=== PATIENT | female | born 1945 | race Caucasian/White ===

== ENCOUNTER 2017-01-09 08:15 | Emergency (ER) | payer OTHER ==
[~2017-01-09] VITALS: Ht 165.1 cm; Wt 98.2 kg
[2017-01-09 08:28] VITALS: Ht 165.1 cm; Wt 98.2 kg
[2017-01-09] MEDS ORDERED: morphine 4 MG/ML VIAL IV STA (08:44)
[2017-01-09] MEDS ORDERED: ONDANSETRON 4 MG INJ IV STA (08:44)
--- NOTE | 2017-01-09 09:31 | ERA ---
ER Documentation Chief Complaint Date/Time DATE: 01/09/17 TIME: 09:27 Chief Complaint NON-TRAUMATIC RT ARM PAIN RADIATING TO SHOULDER. HPI This is a 71-year-old female who presents with right arm pain. Her daughter is interpreting. The patient describes approximately 2-3 days of right arm pain. She describes the pain as a radiating from the anterior glenohumeral or joint to the forearm and posterior shoulder. She denies any chest pain or mid back pain. She denies any sudden onset of pain. The patient's pain is gradual in onset and worse over the past several days. She describes the pain is slightly worse with movement. She denies any recent trauma, fevers or chills. No exertional symptoms. ROS All systems reviewed and are negative except as per history of present illness. Medications Home Meds Active Scripts Docusate Sodium* (Colace*) 100 Mg Capsule, 100 MG PO TID Y for CONSTIPATION, # 30 CAP Prov:LIZZY TUCKER MD 01/09/17 Tramadol HCl (Tramadol HCl) 50 Mg Tablet, 50 MG PO Q6 Y for PAIN, #15 TAB Prov:LIZZY TUCKER MD 01/09/17 PMhx/Soc History of Surgery: Yes (Bilateral cataract, Hysterectomy) Anesthesia Reaction: No Hx Neurological Disorder: No Hx Respiratory Disorders: No Hx Cardiac Disorders: No (HTN) Hx Psychiatric Problems: Yes (Depression) Hx Miscellaneous Medical Probl: No Hx Alcohol Use: No Hx Substance Use: No Hx Tobacco Use: No Smoking Status: Never smoker FmHx Family History: No diabetes Physical Exam Vitals Vital Signs Date Time Temp Pulse Resp B/P Pulse Ox O2 Delivery O2 Flow Rate FiO2 01/09/17 08:50 0 01/09/17 08:28 98.2 66 16 196/97 98 Physical Exam General: Well developed, well nourished, no acute distress Head: Normocephalic, atraumatic. Eyes: Pupils equally reactive, EOM intact ENT: Moist mucous membranes Neck: Supple, no lymphadenopathy Respiratory: Lungs clear bilaterally, no distress Cardiovascular: RRR, no murmurs, rubs, or gallops Abdominal: Soft, non-tender, non-distended, no peritoneal signs : Deferred MSK: The patient seems to have focal tenderness along the anterior portion of the glenohumeral joint with a positive supraspinatus test. Soft compartments of the upper extremity, 2+ radial and ulnar pulses, no pulse deficits Neurologic: Alert and oriented, moving all extremities, normal speech, no focal weakness, no cerebellar signs Skin: No rash Psych: Normal mood Result Diagram: 01/09/17 0856 01/09/17 0856 Results 24 hrs Laboratory Tests Test 01/09/17 08:56 White Blood Count 7.210^3/ul Red Blood Count 4.3510^6/ul Hemoglobin 13.6g/dl Hematocrit 39.4% Mean Corpuscular Volume 90.6fl Mean Corpuscular Hemoglobin 31.3pg Mean Corpuscular Hemoglobin Concent 34.5g/dl Red Cell Distribution Width 13.8% Platelet Count 45838^3/UL Mean Platelet Volume 11.0fl Neutrophils % 67.0% Lymphocytes % 24.4% Monocytes % 6.6% Eosinophils % 1.0% Basophils % 0.6% Nucleated Red Blood Cells % 0.0/100WBC Neutrophils # (Manual) 4.810^3/ul Lymphocytes # 1.810^3/ul Monocytes # 0.510^3/ul Eosinophils # 0.110^3/ul Basophils # 0.010^3/ul Nucleated Red Blood Cells # 0.010^3/ul Sodium Level 140mmol/L Potassium Level 3.6mmol/L Chloride Level 104mmol/L Carbon Dioxide Level 26mmol/L Anion Gap 14 Blood Urea Nitrogen 11mg/dl Creatinine 0.64mg/dl Glucose Level 96mg/dl Calcium Level 9.2mg/dl Troponin I < 0.012ng/ml Current Medications Medications (Trade) Dose Ordered Sig/Nicole Route PRN Reason Start Time Stop Time Status Last Admin Dose Admin Morphine Sulfate (morphine) 4 mg ONCE STAT IV 01/09/17 08:44 01/09/17 08:46 DC 01/09/17 08:44 Ondansetron HCl (Zofran Inj) 4 mg ONCE STAT IV 01/09/17 08:44 01/09/17 08:46 DC 01/09/17 08:44 Procedures/MDM EKG, MONITORS, & DIAGNOSTIC IMAGING: EKG: I reviewed and interpreted a 12-lead EKG. Rhythm: Normal sinus rhythm Ectopy: None Intervals: No abnormalities ST segments: No elevations or depressions T waves: No contiguous inversions Chest x-ray: I reviewed and interpreted a 2 view of the chest Mediastinum: No enlargement Cardiac silhouette: No cardiomegaly Airspace: Clear lung singh bilaterally without evidence of pneumothorax Bones: No evidence of fracture X-ray right shoulder I reviewed and interpreted multiple views of the x-ray Bones: No evidence of acute fracture dislocation or subluxation Soft tissue: No evidence of foreign body LAB INTERPRETATION: Negative troponin MEDICAL DECISION MAKING: The patient presents to the emergency room with right shoulder pain. She does have elevated blood pressure. The patient states that she did not take her blood pressure medication today. The patient does have shoulder pain with slight posterior shoulder pain. However, she does not have midline back pain, no ripping or tearing or sudden onset of symptoms, no pulse deficits, no migratory pain to suggest dissection. I do not believe the patient is having a dissection and do not feel the patient requires CTA of the chest. The patient's symptoms additionally do not suggest a cardiac etiology. The patient has very reproducible symptoms on her right shoulder with a positive supraspinatus test. I believe given her clinical exam this is more likely secondary to rotator cuff tendinitis versus rotator cuff injury. No signs or symptoms concerning for septic arthritis, no erythema warmth or tenderness, full active and passive range of motion of the joint. ER COURSE The patient's pain and symptoms are improved. The patient's laboratory testing and diagnostic imaging is negative. Normal mediastinum on chest x-ray. At this time and feel the patient can be safely discharged home with range of motion exercises, referral to primary care physician for PT and OT, outpatient referral to orthopedic surgeon from primary care physician would be reasonable and outpatient MRI imaging would be reasonable. Return precautions were discussed with the family and stated understanding. The patient took her daily medication and her blood pressure has improved. I kept the patient and/or family informed of laboratory and diagnostic imaging results throughout the emergency room course. DISPOSITION PLAN: We discussed follow up with the patient's primary care doctor within 24 to 48 hours as needed. We also discussed return to the emergency room for worsening symptoms or worsening condition. Outpatient referral: Primary care and orthopedic surgery Discharge Medications: Tramadol, Colace Departure Diagnosis: Primary Impression: Hypertensive urgency Additional Impression: Tendinitis of right rotator cuff Condition: Stable LIZZY TUCKER MD Jan 09, 2017 09:31
[2017-01-09 09:39] LABS: BASOPHILS % 0.6 % (0.0-2.0); EOSINOPHILS # 0.1 10^3/ul (0.0-0.5); HEMATOCRIT 39.4 % (37.0-47.0); HEMOGLOBIN 13.6 g/dl (12.0-16.0); LYMPHOCYTES # 1.8 10^3/ul (0.8-2.9); LYMPHOCYTES % 24.4 % (15.0-51.0); MEAN CORPUSCULAR HEMOGLOBIN 31.3 pg (29.0-33.0); MEAN CORPUSCULAR HGB CONC 34.5 g/dl (32.0-37.0); MEAN CORPUSCULAR VOLUME 90.6 fl (82.0-101.0); MONOCYTE # 0.5 10^3/ul (0.3-0.9); MONOCYTES % 6.6 % (0.0-11.0); PLATELET COUNT 294 10^3/UL (140-415); RED BLOOD COUNT 4.35 10^6/ul (4.20-5.40); RED CELL DISTRIBUTION WIDTH 13.8 % (11.5-14.5); WHITE BLOOD COUNT 7.2 10^3/ul (4.8-10.8)
--- NOTE | 2017-01-09 09:45 | RADRPT ---
PROCEDURE: XR Shoulder. CLINICAL INDICATION: Right shoulder pain TECHNIQUE: Three views of the right shoulder are available for review. COMPARISON: None available FINDINGS: The humeral head is located. Mild AC joint arthrosis. There is no acute osseous or articular abnorma lity. No evidence for fracture. The visualized portions of the right lung are clear . IMPRESSION: 1. No acute osseous abnormality. 2. Mild AC joint arthrosis. RPTAT: QQ .Mayo Pyle MD, MD Date Time Electronically viewed and signed by .Mayo Pyle MD, on 01/09/2017 09:45 .d/
--- NOTE | 2017-01-09 09:46 | RADRPT ---
PROCEDURE: XR Chest. CLINICAL INDICATION: Dyspnea TECHNIQUE: Single frontal chest x-ray. COMPARISON: None available FINDINGS: The lungs volumes are diminished. There are compressive changes with vascular crowding and basilar atelectasis. No acute infiltrate is seen. The cardiomediastinal silhouette is normal. The base of the heart is elevated due to low lung volumes. Aortic atherosclerotic vascular calcifications are identified. The surrounding soft tissues and osseous structures are remarkable for minimal subtle d egenerative enthesopathy of the spine. IMPRESSION: 1. Low lung volumes with compressive changes and basilar atelectasis. 2. Otherwise, unremarkable chest x-ray. No acute infiltrate is seen. 3. Scattered benign chronic senescent changes. RPTAT: HMJB .Ignacio Sanchez MD, MD Date Time Electronically viewed and signed by .Ignacio Sanchez MD, on 01/09/2017 09:45 .B/
[2017-01-09 09:57] LABS: ANION GAP 14 (8-16); BLOOD UREA NITROGEN 11 mg/dl (7-20); CALCIUM 9.2 mg/dl (8.4-10.2); CARBON DIOXIDE 26 mmol/L (21-31); CHLORIDE 104 mmol/L (97-110); CREATININE 0.64 mg/dl (0.44-1.00); GLUCOSE 96 mg/dl (70-220); POTASSIUM 3.6 mmol/L (3.5-5.1); SODIUM 140 mmol/L (135-144)
[2017-01-09 10:12] LABS: TROPONIN-I < 0.012 ng/ml (0.00-0.12)
[2017-01-09] MEDS ORDERED: DOCU-144 PO (10:32)
[2017-01-09] MEDS ORDERED: TRAM50TA2 PO (10:32)
[2017-01-09 10:35] VITALS: BP 161/76; PULSE 53; RESP 18
== END 2017-01-09 10:44 | disposition home or self-care (01) ==
LOC: E/R 08:15
DX: I16.0 Hypertensive urgency (principal); M75.81 Other shoulder lesions, right shoulder; I10 Essential (primary) hypertension
CPT/HCPCS: 36415; 71020; 73030; 80048; 84484; 85025; 93005; 96374; 96375; 99285; J2270; J2405

== ENCOUNTER 2018-04-26 22:07 | Emergency (ER) | END 2018-04-27 01:03 | disposition home or self-care (01) ==

== ENCOUNTER 2018-06-07 11:10 | Emergency (ER) | payer OTHER ==
[~2018-06-07] VITALS: Ht 157.5 cm; Wt 88.9 kg
[~2018-06-07 11:10] MED LIST: DOCU-144 PO; IBUP-1561 PO; TRAM50TA2 PO
[2018-06-07 11:15] VITALS: Ht 157.5 cm; Wt 88.9 kg
--- NOTE | 2018-06-07 12:06 | ERD ---
ER Documentation Chief Complaint Chief Complaint c/o right arm radiating to back. den injury. Noted with hypertension HPI 72-year-old female history of hypertension, hyperlipidemia, depression and osteoarthritis presents to the ED complaining of right upper back back pain which began upon awakening 3 days ago. Pain is moderate, sharp, nonradiating and exacerbated by movement. No history of trauma or injury. Denies weakness, numbness or paresthesias. Denies chest pain, palpitations, shortness of breath, leg pain, swelling or hemoptysis. No URI symptoms, cough or sputum production. No fevers or chills. ROS All systems reviewed and are negative except as per history of present illness. Medications Home Meds Active Scripts Tramadol HCl (Tramadol HCl) 50 Mg Tablet, 50 MG PO Q8 PRN for PAIN, #12 TAB Prov:DEBO CRAIG MD 06/07/18 Reported Medications Sertraline Hcl* (Sertraline Hcl*) 50 Mg Tablet, 50 MG PO DAILY, #30 TAB 06/07/18 Atorvastatin* (Atorvastatin*) 40 Mg Tablet, 40 MG PO QHS, #30 TAB 06/07/18 Vitamin B Complex* (Vitamin B Complex*) 1 Each Tablet, 1 TAB PO DAILY, TAB 06/07/18 Carvedilol* (Carvedilol*) 3.125 Mg Tablet, 3.125 MG PO BID, #60 TAB 06/07/18 Losartan Potassium* (Losartan Potassium*) 100 Mg Tablet, 100 MG PO DAILY, TAB 06/07/18 Alendronate Sodium* (Fosamax*) 70 Mg Tablet, 70 MG PO Q7D, #4 TAB 06/07/18 Discontinued Scripts Ibuprofen* (Motrin*) 400 Mg Tab, 400 MG PO Q6, #30 TAB Prov:TYRELL ISLAS PA-C 04/27/18 Docusate Sodium* (Colace*) 100 Mg Capsule, 100 MG PO TID PRN for CONSTIPATION, #30 CAP Prov:LIZZY TUCKER MD 01/09/17 Tramadol HCl (Tramadol HCl) 50 Mg Tablet, 50 MG PO Q6 PRN for PAIN, #15 TAB Prov:LIZZY TUCKER MD 01/09/17 Allergies Allergies: Coded Allergies: No Known Allergy (Unverified , 06/07/18) PMhx/Soc Reviewed in chart. As per HPI. History of Surgery: Yes (Bilateral cataract, Hysterectomy) Anesthesia Reaction: No Hx Neurological Disorder: No Hx Respiratory Disorders: No Hx Cardiac Disorders: No (HTN) Hx Psychiatric Problems: Yes (Depression) Hx Miscellaneous Medical Probl: No Hx Alcohol Use: No Hx Substance Use: No Hx Tobacco Use: No FmHx No stroke or cancer Physical Exam Vitals Vital Signs Date Temp Pulse Resp B/P (MAP) Pulse Ox O2 O2 Flow FiO2 Time Delivery Rate 06/07/18 65 18 174/90 96 Room Air 14:34 (118) 06/07/18 63 16 166/105 94 Room Air 13:35 (125) 06/07/18 98.0 73 20 212/97 96 11:15 (135) Physical Exam Const: Moderate distress due to pain Head: Atraumatic Eyes: Normal Conjunctiva ENT: Normal External Ears, Nose and Mouth. Neck: Full range of motion. No meningismus. Resp: Breath sounds are equal and obese, clear to auscultation bilaterally Cardio: Regular rate and rhythm, no murmurs Abd: Soft, non tender, non distended. Normal bowel sounds Skin: No petechiae or rashes Back: Thoracic spine: Moderate, right, paraspinal tenderness. No midline bony tenderness or paraspinal muscle spasm. No tenderness to percussion. Ext: No calf swelling or tenderness. No cyanosis, or edema. Pulses 4+ in all extremities. Neur: Awake and alert. Motor and sensory equal bilaterally. No focal deficit observed. Psych: Cooperative. Patient appears anxious but not depressed. Results 24 hrs Current Medications Medications Dose Sig/Nicole Start Time Status Last (Trade) Ordered Route PRN Stop Time Admin Dose Reason Admin Ketorolac 15 mg ONCE STAT 06/07/18 DC 06/07/18 Tromethamine IM 12:14 12:24 (Toradol) 06/07/18 12:15 Procedures/MDM DOCUMENTS REVIEWED: ED nurse, prior ED records IMAGING: PROCEDURE: XR Chest. CLINICAL INDICATION: Chest pain TECHNIQUE: Single portable view of the chest was obtained COMPARISON: CR CHEST 01/09/2017 FINDINGS: The trachea is midline. The cardiac silhouette is enlarged and pulmonary vascularity are within normal limits. The lungs are clear. The costophrenic angles are sharp. IMPRESSION: 1. Cardiomegaly. No evidence of acute cardiopulmonary disease. RPTAT: AAPP Physician Nadia Date Time Electronically viewed and signed by Physician Nadia on 06/07/2018 13:07 JL/ PROCEDURE: X-RAY THORACIC SPINE CLINICAL INDICATION: Right upper back pain. TECHNIQUE: Two views of the thoracic spine are available for interpretation - frontal and lateral. COMPARISON: Chest x-ray dated 01/09/2017 FINDINGS: There is shallow convex right curvature of the upper thoracic spine. Moderately advanced spondylosis/degenerative enthesopathy changes are identified throughout the thoracic spine. Changes consist of disc space narrowing, and anterior osteophytes. There has been progression, especially in the mid thoracic spine, since the prior exam. No evidence for fracture. No evidence for paraspinous mass lesion. The aorta is tortuous. IMPRESSION: 1. Progression of spondylosis/enthesopathy, especially in the mid thoracic spine, since the prior examination of 01/09/2017. 2. No fracture identified. RPTAT: XX .Cy Crum MD, Date Time Electronically viewed and signed by .Cy Crum MD, on 06/07/2018 13:19 .T/ MEDICAL DECISION MAKIN-year-old female history of hypertension, hyperlipidemia, depression and osteoarthritis presents to the ED complaining of right upper back back pain which began upon awakening 3 days ago. Differential Diagnosis includes but is not limited to spinal strain, disc herniation, sciatica, spinal stenosis, urinary tract infection, pyelonephritis, chronic back pain, contusion, DJD, vertebral fracture, shingles, renal stone, compression fracture, pancreatitis, discitis, epidural abscess, osteomyelitis, osteoporosis, ankylosing spondylitis, drug seeking behavior, neoplasm, metastatic cancer, pneumonia, TB, Cauda Equina and AAA. Chest x-ray to evaluate for mediastinal widening, mass, pneumothorax, pleural effusion or infiltrate reveals cardiomegaly but is otherwise unremarkable. Radiographs of the lumbar spine to evaluate for fracture, subluxation reveals progression of degenerative disease since January 2017. The patient's clinical presentation is most consistent with a musculoskeletal cause. Pain resolved with ketorolac. There is neither evidence of any acute neurologic damage, nor loss of function and thus, advanced imaging studies have been deferred. Patient will be treated conservatively with appropriate pain control and stable for discharge with precautionary discharge instructions provided and outpatient follow-up as counseled. Though the patient's latest blood pressure was elevated (>120/80), the patient has a known history of hypertension and urged to pursue adjustment of their medical therapy within a week with their primary care physician. Please refer to the medication reconciliation form for the current list of hypertensive medications. Counseled patient and daughter regarding diagnostic workup, diagnosis and need for followup. Understands to return to ED if symptoms recur, worsen or any other concerns. Departure Diagnosis: Primary Impression: Acute upper back pain Additional Impressions: DJD (degenerative joint disease) of thoracic spine Spinal osteoarthritis complication: unspecified spinal osteoarthritis Qualified Codes: M47.814 - Spondylosis without myelopathy or radiculopathy, thoracic region Essential hypertension Condition: Stable (Improved) DEBO CRAIG MD Jun 07, 2018 12:06
[2018-06-07] MEDS ORDERED: KETOROLAC 15 MG INJ IM STA (12:14)
[2018-06-07] MEDS ORDERED: ALEN70TA5 PO (12:58)
[2018-06-07] MEDS ORDERED: CARV3.1260 PO (12:59)
[2018-06-07] MEDS ORDERED: VIT1TABL46 PO (12:59)
[2018-06-07] MEDS ORDERED: LOSA100T15 PO (12:59)
[2018-06-07] MEDS ORDERED: ATOR40TA68 PO (13:00)
[2018-06-07] MEDS ORDERED: SERT50TA6 PO (13:00)
[2018-06-07 14:34] VITALS: BP 174/90; PULSE 65; RESP 18
[2018-06-07] MEDS ORDERED: TRAM50TA2 PO (14:59)
== END 2018-06-07 15:32 | disposition home or self-care (01) ==
LOC: E/R 11:10
DX: M54.6 Pain in thoracic spine (principal); I10 Essential (primary) hypertension
CPT/HCPCS: 71045; 72072; 96372; 99284; J1885